=== PATIENT | male | born 1980 | race Caucasian/White ===

== ENCOUNTER 2019-09-18 08:53 | Emergency (ER) | payer OTHER, SELFPAY ==
[2019-09-18 09:33] VITALS: BP 119/76; PULSE 61; RESP 16; TEMP 36.7; O2SAT 100
--- NOTE | 2019-09-18 10:01 | ED.GENADULT ---
HPI - General Adult General Chief complaint: Wound/Laceration Stated complaint: wound Time Seen by Provider: 09/18/19 10:01 Source: patient and RN notes reviewed Mode of arrival: ambulatory Limitations: no limitations History of Present Illness HPI narrative: 39-year-old male presents with complaints of laceration and tenderness to the palm of left lower hand (below thumb) caused by a new drill he had removed from the package prior to coming to the [facility]. Denies erythema or swelling to area. Denies drainage, bleeding controlled. No treatment. Jose Juan is on Keflex for laceration to RT finger he obtained on 09/16/19 in which he has only taken 2 pills. Denies fever or chills. Remains and active. Unsure if Tetanus is up-to-date, will vaccine today. The patient reports he have not been diagnosed with COVID-19. The patient reports he is not waiting for the results of a COVID-19 lab test. The patient reports he do not have fever, chills, weakness, fatigue, or myalgia. The patient reports he do not have a new or worsening cough or shortness of breath. Denies chest pain. The patient reports he do not have any rhinorrhea, congestion, sore throat, nausea, vomiting, abdominal pain, and diarrhea. Tolerating po intake well. Traveled here from [place] 2 days ago to visit in-laws. Denies concerns for COVID-19 or exposures been home with limited outdoor exposure except for essential household needs, work, and return home. At this time, patient is not suspected of having COVID-19. Some parts of this dictation were generated by voice recognition software and may contain typographical and/or grammatical inaccuracies. Related Data Home Medications Medication Instructions Recorded Confirmed cephalexin 500 mg PO QID 09/18/19 09/18/19 Allergies Allergy/AdvReac Type Severity Reaction Status Date / Time No Known Allergies Allergy Mild Verified 02/19/09 14:59 Review of Systems Review of Systems: Narrative: CONSTITUTIONAL: Denies fever, chills, sweats. EYES: Denies visual changes, redness, discharge. ENT: Denies rhinorrhea, congestion, sore throat, otalgia. CARDIOVASCULAR: Denies chest pain, palpitations, edema. RESPIRATORY: Denies dyspnea, wheezing, cough GASTROINTESTINAL: Denies abdominal pain, nausea, vomiting, diarrhea. GENITOURINARY: Denies dysuria, hematuria, abnormal discharge SKIN: Complains of laceration and tenderness to the palm of left lower hand (below thumb). Denies erythema, tenderness, or drainage. MUSCULOSKELETAL: Denies acute back pain, joint pain, or myalgia. NEUROLOGIC: Denies numbness or focal weakness. PSYCHIATRIC: Denies anxiety or depression. All other systems reviewed are negative, except as documented in HPI and below. [facility] Past Medical History Medical History (Updated 09/19/19 @ 00:00 by Beatrice Paulino) Cyst RT side of neck removed in high school Surgical History Surgical History (Updated 09/18/19 @ 10:26 by DANA Georges) History of tonsillectomy History of vasectomy Family History Family History (Updated 09/18/19 @ 10:26 by DANA Georges) Father Alive and well Mother Osteoporosis Social History Social History (Updated 09/18/19 @ 10:27 by DANA Georges) Smoking status: Light tobacco smoker Tobacco type: cigars Alcohol intake: current Substance use: never Living arrangements: with family Occupation/Education: occupation Gender identity (if verbalized by the patient): Male Sexual Orientation (if Verbalized by the Patient): Straight or Heterosexual Comments At time of signature, agree with nurse past medical, surgical, social, and family history. There is no relevant family history pertinent to the presenting complaint. Exam Narrative: Exam Narrative: GENERAL: This is a well-nourished, well-developed patient, in no apparent distress. Talks in full sentences and ambulates with steady gait without dyspnea. HEAD: normocephalic, atraum
[2019-09-18] MEDS: TETANUS,DIPHTHERIA,AC PERTUSSIS ADULT (0.5 ML) BOOSTRIX IM (10:19)
== END 2019-09-18 10:34 | disposition home or self-care (01) ==
PROVIDERS: Emergency Provider Nurse Practitioner Family
DX: S81.831A Puncture wound without foreign body, right lower leg, initial encounter (principal); X58.XXXA Exposure to other specified factors, initial encounter; Z23 Encounter for immunization; F17.290 Nicotine dependence, other tobacco product, uncomplicated
CPT/HCPCS: 90471; 90715; 99212; G0463